=== PATIENT | male | born 1965 | race African-American/Black ===

== ENCOUNTER 2017-07-12 18:13 | Emergency (ER) | payer MEDICAID, OTHER ==
[~2017-07-12] VITALS: Ht 177.8 cm; Wt 123.6 kg
[~2017-07-12 18:13] MED LIST: CITA10TA68 PO; HYDR25TA PO; LISI-661 PO; RISP1 PO
[2017-07-12 20:48] VITALS: BP 147/85
== END 2017-07-12 21:25 | disposition left against medical advice (07) ==
LOC: EMS 18:15
DX: S40.011A Contusion of right shoulder, initial encounter (principal); S01.552A Open bite of oral cavity, initial encounter; I10 Essential (primary) hypertension; M19.90 Unspecified osteoarthritis, unspecified site; F43.10 Post-traumatic stress disorder, unspecified; F12.10 Cannabis abuse, uncomplicated; Y08.89XA Assault by other specified means, initial encounter; Y93.89 Activity, other specified; Y92.89 Other specified places as the place of occurrence of the external cause; Y99.8 Other external cause status
CPT/HCPCS: 99284